=== PATIENT | female | born 1945 | race African-American/Black ===

== ENCOUNTER 2023-04-11 08:35 | Emergency (ER) | payer MEDICAID, MEDICARE, OTHER | END 2023-04-11 09:15 | disposition home or self-care (01) | LOC: ERS 08:35 | DX: L24.9 Irritant contact dermatitis, unspecified cause (principal); I11.0 Hypertensive heart disease with heart failure; I50.9 Heart failure, unspecified; Z87.891 Personal history of nicotine dependence | CPT/HCPCS: 99283 ==